=== PATIENT | male | born 1990 | race Caucasian/White ===

== ENCOUNTER 2020-10-01 03:41 | Emergency (ER) | payer OTHER ==
[~2020-10-01] VITALS: Ht 182.9 cm; Wt 70.3 kg
--- NOTE | 2020-10-01 03:45 | NUR ---
PT AAOX4. BIBSELF C/O FEVER AND SORE THROAT. PLACED IN BED 2 ON MONITOR AND PULSE OX. VSS.
[2020-10-01] MEDS ORDERED: KETOROLAC TROMETHAMINE 15 MG/ML VIAL ONE (04:04)
[2020-10-01] MEDS ORDERED: DEXAMETHASONE SOLN 5 MG/5 ML UDC ONE (04:04)
[2020-10-01] MEDS ORDERED: DEXAMETHASONE SOLN 5 MG/5 ML UDC PO ONE (04:30)
[2020-10-01] MEDS ORDERED: IV NS 0.9% 2,000 ML IV ONE (04:30)
[2020-10-01] MEDS ORDERED: KETOROLAC TROMETHAMINE INJ 30 MG/ML VIAL IV ONE (04:30)
--- NOTE | 2020-10-01 05:08 | NUR ---
PT ASLEEP, VSS.
--- NOTE | 2020-10-01 05:09 | NUR ---
ER MD AT BEDSIDE SPEAKING TO PT REGARDING DISCHARGE.
--- NOTE | 2020-10-01 05:09 | NUR ---
Note undone in ED - 10/01/20 at 0514 by EVICTOR IV removed. Catheter intact and site benign. Pressure and 4x4 applied to site. No bleeding noted.
--- NOTE | 2020-10-01 05:09 | NUR ---
Note abigail in EDM - 10/01/20 at 0514 by GILBERTO Patient discharged to home in stable condition. Written and verbal after care instructions given. Patient verbalizes understanding of instruction. Pt ambulated out of ED. VSS.
[2020-10-01 06:23] VITALS: BP 128/76
--- NOTE | 2020-10-01 06:23 | NUR ---
IV removed. Catheter intact and site benign. Pressure and 4x4 applied to site. No bleeding noted. Patient discharged to home in stable condition. Written and verbal after care instructions given. Patient verbalizes understanding of instruction.
== END 2020-10-01 06:24 | disposition home or self-care (01) ==
LOC: ER 03:45
DX: J02.9 Acute pharyngitis, unspecified (principal); R19.7 Diarrhea, unspecified
CPT/HCPCS: 96361; 96374; 99283; J1885; J7030; J8540